=== PATIENT | male | born 1995 | race Caucasian/White ===

== ENCOUNTER 2021-09-18 08:14 | Emergency (ER) | payer BC ==
[~2021-09-18] VITALS: Ht 190.5 cm; Wt 108.8 kg
--- NOTE | 2021-09-18 08:50 | ED Chest Pain ---
General Chief Complaint: Cardiac/General Problems Stated Complaint: HEART FLUTTER Nursing Triage Note: PT AMB TO RM 6 WITH COMPLAINT OF FEELING LIKE HIS HEART IS FLUTTERING. STATES HAS BEEN GOING FOR THE LAST WEEK. Source: patient Exam Limitations: no limitations History of Present Illness Date Seen by Provider: Sep 18, 2021 Time Seen by Provider: 08:30 Initial Comments Patient to the ER by private conveyance with chief complaint that about 730, 1 hour prior to arrival he was laying on his bed and felt like he could not feel his heart beating so he put his Fitbit on and it was beating in the 80s. He went to push up off of the bed where he was laying on his belly and he said he felt some numbness in his left arm and some momentary pressure, tightness and 1 out of 10 pain along his sternum and as well as under his left breast and his left shoulder. The symptoms are reproducible by movement of his shoulder and chest. He has no history of heart disease. He says his mother has a history of hypertension but no other familial history. He does not take any medications routinely. He used to follow with a primary care provider in [place] and recently moved here to finish his 4-year degree at [employer]. He is not having any pain now stating the pain only lasted for a few seconds. He states he does have a history of anxiety which has gotten worse since moving to another town. He does not exercise as much as he used to. He says he does not drink coffee but he does drink energy drinks less than 1 a week. About a month ago he was drinking the more frequently. He says typically he just drinks them what is going on a long drive. No fevers chills cough or shortness of air. He is not having any pain presently. For the past couple weeks has been having palpitations in his chest on the left side usually lasting less than 10 seconds at a time. He does not use recreational stimulants, cannabis, tobacco or alcohol. No GERD or reflux. Allergies and Home Medications Allergies Coded Allergies: No Known Drug Allergies (Unverified , 09/18/21) Patient Home Medication List Home Medication List Reviewed: Yes Review of Systems Review of Systems Constitutional: No chills, No diaphoresis EENTM: No Blurred Vision, No Double Vision Respiratory: Denies Cough, Denies Shortness of Air Cardiovascular: See HPI, Chest Pain; Denies Lightheadedness Gastrointestinal: Denies Abdominal Pain, Denies Constipated, Denies Diarrhea, Denies Nausea Genitourinary: Denies Burning, Denies Discharge Musculoskeletal: No back pain, No joint pain All Other Systems Reviewed Negative Unless Noted: Yes Past Emlagsu-Zptcie-Xinfqi Hx Patient Social History Tobacco Use?: No Use of E-Cig and/or Vaping dev: No Substance use?: No Alcohol Use?: Yes Alcohol Frequency: Once in a while Pt feels they are or have been: No Physical Exam Vital Signs Vital Signs - First Documented 09/18/21 08:22 Temp 36.3 Pulse 90 Resp 13 B/P (MAP) 152/96 (114) Pulse Ox 99 O2 Delivery Room Air Capillary Refill : Less Than 3 Seconds Height, Weight, BMI Height: '" Weight: lbs. oz. kg; 29.00 BMI Method: General Appearance: No Apparent Distress, WD/WN HEENT: PERRL/EOMI, TMs Normal, Normal ENT Inspection, Moist Mucous Membranes Neck: Full Range of Motion, Normal Inspection Respiratory: Lungs Clear, Normal Breath Sounds, No Accessory Muscle Use, No Respiratory Distress, Other (Chest discomfort reproduced by movement of the chest wall and shoulder) Cardiovascular: Regular Rate, Rhythm, No Edema, Normal Peripheral Pulses Gastrointestinal: Normal Bowel Sounds, Non Tender, Soft Extremity: Normal Capillary Refill, Normal Inspection, No Pedal Edema Neurologic/Psychiatric: Alert, Oriented x3 Progress/Results/Core Measures Results/Orders Lab Results Laboratory Tests Test 09/18/21 09:25 09/18/21 09:35 Range/Units Urine Color YELLOW Urine Clarity CLEAR Urine pH 7.5 5-9 Urine Specific [place] 1.015 L 1.016-1.022 Urine Protein NEGATIVE NEGATIVE Urine Glucose (UA) NEGATIVE NEGATIVE Urine Ketones NEGATIVE NEGATIVE Urine Nitrite NEGATIVE NEGATIVE Urine Bilirubin NEGATIVE NEGATIVE Urine Urobilinogen 0.2 < = 1.0 MG/DL Urine Leukocyte Esterase NEGATIVE NEGATIVE Urine RBC (Auto) TRACE-I H NEGATIVE Urine RBC RARE /HPF Urine WBC NONE /HPF Urine Crystals NONE /LPF Urine Bacteria NEGATIVE /HPF Urine Casts NONE /LPF Urine Mucus NEGATIVE /LPF Urine Culture Indicated NO Urine Opiates Screen NEGATIVE NEGATIVE Urine Oxycodone Screen NEGATIVE NEGATIVE Urine Methadone Screen NEGATIVE NEGATIVE Urine Propoxyphene Screen NEGATIVE NEGATIVE Urine Barbiturates Screen NEGATIVE NEGATIVE Ur Tricyclic Antidepressants Screen NEGATIVE NEGATIVE Urine Phencyclidine Screen NEGATIVE NEGATIVE Urine Amphetamines Screen NEGATIVE NEGATIVE Urine Methamphetamines Screen NEGATIVE NEGATIVE Urine Benzodiazepines Screen NEGATIVE NEGATIVE Urine Cocaine Screen NEGATIVE NEGATIVE Urine Cannabinoids Screen NEGATIVE NEGATIVE White Blood Count 6.1 4.3-11.0 10^3/uL Red Blood Count 6.02 H 4.30-5.52 10^6/uL Hemoglobin 17.4 13.3-17.7 g/dL Hematocrit 52 40-54 % Mean Corpuscular Volume 86 80-99 fL Mean Corpuscular Hemoglobin 29 25-34 pg Mean Corpuscular Hemoglobin Concent 34 32-36 g/dL Red Cell Distribution Width 12.5 10.0-14.5 % Platelet Count 162 130-400 10^3/uL Mean Platelet Volume 9.4 9.0-12.2 fL Immature Granulocyte % (Auto) 1 % Neutrophils (%) (Auto) 71 42-75 % Lymphocytes (%) (Auto) 15 12-44 % Monocytes (%) (Auto) 12 0-12 % Eosinophils (%) (Auto) 1 0-10 % Basophils (%) (Auto) 1 0-10 % Neutrophils # (Auto) 4.3 1.8-7.8 10^3/uL Lymphocytes # (Auto) 0.9 L 1.0-4.0 10^3/uL Monocytes # (Auto) 0.7 0.0-1.0 10^3/uL Eosinophils # (Auto) 0.1 0.0-0.3 10^3/uL Basophils # (Auto) 0.0 0.0-0.1 10^3/uL Immature Granulocyte # (Auto) 0.0 0.0-0.1 10^3/uL Sodium Level 140 135-145 MMOL/L Potassium Level 4.0 3.6-5.0 MMOL/L Chloride Level 104 98-107 MMOL/L Carbon Dioxide Level 22 21-32 MMOL/L Anion Gap 14 5-14 MMOL/L Blood Urea Nitrogen 9 7-18 MG/DL Creatinine 1.15 0.60-1.30 MG/DL Estimat Glomerular Filtration Rate 91 BUN/Creatinine Ratio 8 Glucose Level 96 70-105 MG/DL Calcium Level 10.1 8.5-10.1 MG/DL Corrected Calcium 8.5-10.1 MG/DL Total Bilirubin 0.9 0.1-1.0 MG/DL Aspartate Amino Transf (AST/SGOT) 32 5-34 U/L Alanine Aminotransferase (ALT/SGPT) 38 0-55 U/L Alkaline Phosphatase 56 40-136 U/L Troponin I < 0.028 <0.028 NG/ML Total Protein 8.0 6.4-8.2 GM/DL Albumin 5.0 H 3.2-4.5 GM/DL Thyroid Stimulating Hormone (TSH) 0.97 0.35-4.94 UIU/ML My Orders Orders - LISA AREVALO Ekg Tracing (09/18/21 08:28) Continuous Ekg Monitoring (09/18/21 08:28) Cbc With Automated Diff (09/18/21 08:45) Comprehensive Metabolic Panel (09/18/21 08:45) Troponin I [place] (09/18/21 08:45) Thyroid Stimulating Hormone (09/18/21 08:45) Drug Screen Stat (Urine) (09/18/21 08:45) Ua Culture If Indicated (09/18/21 08:45) Chest 1 View, Ap/Pa Only (09/18/21 08:50) Vital Signs/I&O 09/18/21 08:22 Temp 36.3 Pulse 90 Resp 13 B/P (MAP) 152/96 (114) Pulse Ox 99 O2 Delivery Room Air Blood Pressure Mean: 114 Progress Progress Note : Time: 08:54 Progress Note Suspect his discomfort in his chest after pushing up off the bed may be related to musculoskeletal. We will check a TSH, troponin and some basic labs for electrolytes and anemia. We will get a chest x-ray to evaluate the size of the heart and make sure there is no underlying pneumonia or mass. He has a normal rhythm on telemetry and will obtain an EKG. We will observe him as long as it takes to get results here in the ER and if we do not find any dysrhythmias on the monitor will send him a referral to cardiology for any more work-up. We have also encouraged him to follow-up with a primary care provider. We have also discussed his anxiety and techniques to manage it as well as looking for counselors through [facility]. Initial ECG Impression Date: Sep 18, 2021 Initial ECG Impression Time: 09:14 Initial ECG Rate: 86 Initial ECG Rhythm: Normal Sinus Initial ECG Intervals: Normal Initial ECG Impression: Normal Initial ECG Comparisson: No Previous ECG Available Comment Normal sinus rhythm without any clinically relevant ST changes. No dysrhythmias noted. Diagnostic Imaging Diagonstic Imaging: Xray Plain Films/CT/US/NM/MRI: chest Comments [facility] [place], [place] NAME: CLINT MAHER [facility] REC#: [id number] PT STATUS: REG ER : 1995 PHYSICIAN: LISA AREVALO MD ADMIT DATE: 09/18/21/ER Signed Date of Exam:09/18/21 CHEST 1 VIEW, AP/PA ONLY EXAMINATION: Chest, 1 view. HISTORY: Chest pain. COMPARISON: None available. FINDINGS: The lung volumes are normal. No focal consolidation is seen. No large pleural effusion or pneumothorax is seen. The cardiomediastinal silhouette is normal in size and contour. No acute osseous abnormality is seen. IMPRESSION: No acute pleuroparenchymal process. Dictated by: Dictated on workstation # [id number] Dict: 09/18/21909 Trans: 09/18/21911 [id number] Interpreted by: MEGA RAMOS DO Electronically signed by: MEGA RAMOS DO 09/18/21911 Reviewed: Reviewed by Me Departure Impression Primary Impression: Palpitations Additional Impression: Chest wall pain Disposition: 01 HOME, SELF-CARE Condition: Stable Departure-Patient Inst. Decision time for Depature: 11:25 Referrals: JULIEN MARIE MDP [facility] NO,LOCAL PHYSICIAN (PCP) Primary Care Physician Patient Instructions: Palpitations ED Add. Discharge Instructions: We could not find any emergent reason for your palpitations today. 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 Return to the ER if you have persistent, severe pain in your chest or other worrisome symptoms such as shortness of air on exertion. All discharge instructions reviewed with patient and/or family. Voiced understanding. Work/School Note: Work Release Form Date Seen in the Emergency Department: Sep 18, 2021 Return to Work: Sep 18, 2021 Restrictions: No Restrictions Copy Copies To 1: JULIEN MARIE MD FACP FAC [facility] LISA AREVALO Sep 18, 2021 08:50
--- NOTE | 2021-09-18 09:10 | Diagnostic Imaging Report ---
EXAMINATION: Chest, 1 view. HISTORY: Chest pain. COMPARISON: None available. FINDINGS: The lung volumes are normal. No focal consolidation is seen. No large pleural effusion or pneumothorax is seen. The cardiomediastinal silhouette is normal in size and contour. No acute osseous abnormality is seen. IMPRESSION: No acute pleuroparenchymal process. Dictated by: Dictated on workstation # [id number]
[2021-09-18 09:31] LABS: BILIRUBIN,URINE NEGATIVE (NEGATIVE); CLARITY,URINE CLEAR; COLOR,URINE YELLOW; GLUCOSE, URINE (UA) NEGATIVE (NEGATIVE); KETONES,URINE NEGATIVE (NEGATIVE); LEUKOCYTE ESTERASE ,URINE NEGATIVE (NEGATIVE); NITRITE,URINE NEGATIVE (NEGATIVE); PH,URINE 7.5 (5-9); PROTEIN,URINE NEGATIVE (NEGATIVE)
[2021-09-18 09:45] LABS: AMPHETAMINE SCREEN, URINE NEGATIVE (NEGATIVE); BARBITURATE SCREEN URINE NEGATIVE (NEGATIVE); BENZODIAZEPINES SCREEN URINE NEGATIVE (NEGATIVE); CANNABINOID SCREEN, URINE NEGATIVE (NEGATIVE); COCAINE SCREEN URINE NEGATIVE (NEGATIVE); METHADONE STAT NEGATIVE (NEGATIVE); METHAMPHETAMINE SCREEN URINE S NEGATIVE (NEGATIVE); OPIATE SCREEN URINE NEGATIVE (NEGATIVE); OXYCODONE STAT NEGATIVE (NEGATIVE); PROPOXYPHENE STAT NEGATIVE (NEGATIVE); TRICYCLIC ANTIDEPRESSANTS SCRE NEGATIVE (NEGATIVE)
[2021-09-18 09:47] LABS: BASOPHILS % (AUTO) 1 % (0-10); EOSINOPHILS # (AUTO) 0.1 10^3/uL (0.0-0.3); EOSINOPHILS % (AUTO) 1 % (0-10); HEMATOCRIT 52 % (40-54); HEMOGLOBIN 17.4 g/dL (13.3-17.7); LYMPHOCYTES # (AUTO) 0.9 10^3/uL (1.0-4.0); LYMPHOCYTES % (AUTO) 15 % (12-44); MEAN CORPUSCULAR HEMOGLOBIN 29 pg (25-34); MEAN CORPUSCULAR HGB CONC 34 g/dL (32-36); MEAN CORPUSCULAR VOLUME 86 fL (80-99); MEAN PLATELET VOLUME 9.4 fL (9.0-12.2); MONOCYTES # (AUTO) 0.7 10^3/uL (0.0-1.0); MONOCYTES % (AUTO) 12 % (0-12); NEUTROPHILS # (AUTO) 4.3 10^3/uL (1.8-7.8); NEUTROPHILS % (AUTO) 71 % (42-75); PLATELET COUNT 162 10^3/uL (130-400); WHITE BLOOD COUNT 6.1 10^3/uL (4.3-11.0)
[2021-09-18 09:47] LABS: BACTERIA,URINE NEGATIVE /HPF; RBC,URINE RARE /HPF
[2021-09-18 10:04] LABS: CHLORIDE 104 MMOL/L (98-107); SODIUM 140 MMOL/L (135-145)
[2021-09-18 10:05] LABS: CALCIUM 10.1 MG/DL (8.5-10.1)
[2021-09-18 10:06] LABS: GLUCOSE 96 MG/DL (70-105)
[2021-09-18 10:07] LABS: CARBON DIOXIDE 22 MMOL/L (21-32)
[2021-09-18 10:08] LABS: BILIRUBIN,TOTAL 0.9 MG/DL (0.1-1.0)
[2021-09-18 10:09] LABS: ALKALINE PHOSPHATASE 56 U/L (40-136)
[2021-09-18 10:10] LABS: CREATININE SERUM 1.15 MG/DL (0.60-1.30); GFR ESTIMATED 91
[2021-09-18 10:11] LABS: BUN/CREATININE RATIO 8
[2021-09-18 10:13] LABS: ALANINE AMINOTRANSFERASE 38 U/L (0-55)
[2021-09-18 11:50] VITALS: BP 135/86
== END 2021-09-18 11:50 | disposition home or self-care (01) ==
LOC: ER 08:18
DX: R00.2 Palpitations (principal)
CPT/HCPCS: 36415; 71045; 80053; 80306; 81000; 84443; 84484; 85025; 93005

== ENCOUNTER 2022-09-05 01:08 | Emergency (ER) | payer BC ==
[~2022-09-05] VITALS: Ht 190 cm; Wt 117.0 kg
--- NOTE | 2022-09-05 01:44 | ED Chest Pain ---
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 HR 87 AND REGULAR NSR ON MONITOR DURING TRIAGE. PT WENT TO [facility] AND WAS GIVEN RX NAPROXEN FOR SCIATICA AND IS CONCERNED THIS COULD BE CAUSED FROM STARTING NAPROXEN. Source: patient, old records Exam Limitations: no limitations History of Present Illness Date Seen by Provider: Sep 05, 2022 Time Seen by Provider: 01:15 Initial Comments This 27-year-old young man presents to the emergency room with complaints of sensation of rapid heart rate and a warm discomfort in his left chest and into his left arm. He notes his heart rate at rest was in the 80s. While up pacing and talking to his mom on the phone it escalated to 136. The discomfort in his chest improved with deep breathing and taking a shower but then worsened again. Pain started when he was lying in bed around midnight. Patient reports starting naproxen yesterday morning as prescribed by the [facility] for reasons of right leg sciatica. Patient was seen in this emergency room about a year ago for similar symptoms. He reports previously having problems with heartburn but feels like this is something different. 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 He denies feeling anxious or having any unusual psychosocial stressors. He denies any drug or alcohol abuse. Allergies and Home Medications Allergies Coded Allergies: No Known Drug Allergies (Unverified , 09/18/21) Patient Home Medication List Home Medication List Reviewed: Yes Review of Systems Review of Systems Constitutional: no symptoms reported EENTM: No Symptoms Reported Respiratory: No Symptoms Reported Cardiovascular: See HPI Gastrointestinal: No Symptoms Reported Genitourinary: No Symptoms Reported Musculoskeletal: see HPI Skin: no symptoms reported Psychiatric/Neurological: See HPI Endocrine: No Symptoms Reported Hematologic/Lymphatic: No Symptoms Reported Past Kfqwmbw-Anlvsh-Nlyftp Hx Patient Social History Tobacco Use?: No Substance use?: No Alcohol Use?: No Immunizations Up To Date Influenza Vaccine Up-to-Date: No; Not Current COVID19 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 oz. 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 Norm as Tested Skin: Normal Color, Warm/Dry Progress/Results/Core Measures Results/Orders Lab Results Laboratory Tests Test 09/05/22 02:05 Range/Units White Blood Count 7.1 4.3-11.0 10^3/uL Red Blood Count 5.14 4.30-5.52 10^6/uL Hemoglobin 15.1 13.3-17.7 g/dL Hematocrit 44 40-54 % Mean Corpuscular Volume 86 80-99 fL Mean Corpuscular Hemoglobin 29 25-34 pg Mean Corpuscular Hemoglobin Concent 34 32-36 g/dL Red Cell Distribution Width 11.9 10.0-14.5 % Platelet Count 196 130-400 10^3/uL Mean Platelet Volume 9.8 9.0-12.2 fL Immature Granulocyte % (Auto) 0 % Neutrophils (%) (Auto) 63 42-75 % Lymphocytes (%) (Auto) 25 12-44 % Monocytes (%) (Auto) 8 0-12 % Eosinophils (%) (Auto) 2 0-10 % Basophils (%) (Auto) 1 0-10 % Neutrophils # (Auto) 4.5 1.8-7.8 10^3/uL Lymphocytes # (Auto) 1.8 1.0-4.0 10^3/uL Monocytes # (Auto) 0.6 0.0-1.0 10^3/uL Eosinophils # (Auto) 0.1 0.0-0.3 10^3/uL Basophils # (Auto) 0.0 0.0-0.1 10^3/uL Immature Granulocyte # (Auto) 0.0 0.0-0.1 10^3/uL Sodium Level 140 135-145 MMOL/L Potassium Level 4.0 3.6-5.0 MMOL/L Chloride Level 108 H 98-107 MMOL/L Carbon Dioxide Level 21 21-32 MMOL/L Anion Gap 11 5-14 MMOL/L Blood Urea Nitrogen 14 7-18 MG/DL Creatinine 1.03 0.60-1.30 MG/DL Estimat Glomerular Filtration Rate 103 BUN/Creatinine Ratio 14 Glucose Level 114 H 70-105 MG/DL Calcium Level 9.3 8.5-10.1 MG/DL Magnesium Level 2.1 1.6-2.4 MG/DL Troponin I < 0.028 <0.028 NG/ML My Orders Orders - ESTEFANI STANTON MD Monitor-Rhythm Ecg Trace Only (09/05/22 01:17) Ed Iv/Invasive Line Start (09/05/22 01:42) Ekg Tracing (09/05/22 01:42) Basic Metabolic Panel (09/05/22 01:42) Cbc With Automated Diff (09/05/22 01:42) Magnesium (09/05/22 01:42) Troponin I [place] (09/05/22 01:42) Chest 1 View, Ap/Pa Only (09/05/22 01:42) Vital Signs/I&O 09/05/22 09/05/22 09/05/22 01:18 01:18 03:02 Temp 36.2 36.2 Pulse 87 79 Resp 16 16 B/P (MAP) 133/97 (109) 123/80 Pulse Ox 97 96 O2 Delivery Room Air Room Air Room Air Blood Pressure Mean: 109 Progress Progress Note : Progress Note Work-up was reviewed in its entirety including CBC, BMP, magnesium, EKG, and chest x-ray. No acute abnormalities were identified. Patient was discharged with reassurance. Initial ECG Impression Date: Sep 05, 2022 Initial ECG Impression Time: 01:58 Initial ECG Rate: 72 Initial ECG Rhythm: Normal Sinus Initial ECG Intervals: Normal Initial ECG Impression: Normal Comment Normal sinus rhythm with no ischemic ST elevation or depression. Juvenile pattern with early repolarization noted without change from prior. No abnormal intervals or axis deviation. Diagnostic Imaging Diagonstic Imaging: Xray Plain Films/CT/US/NM/MRI: chest Comments Chest x-ray viewed by me and compared with prior. My interpretation there are no adverse changes or acute abnormalities. Radiologist report not yet available. Departure Impression Primary Impression: Atypical chest pain Disposition: HOME, SELF-CARE Condition: Improved Departure-Patient Inst. Decision time for Depature: 02:58 Referrals: [facility] (PCP/Family) Primary Care Physician Patient Instructions: Chest Pain, Adult ED Add. Discharge Instructions: Follow-up with the [facility] to discuss options for further evaluation. You may take Tylenol and/or your prescribed naproxen for pain. Return to the ER if you have worsening symptoms or escalating pain despite taking Tylenol and/or naproxen. All discharge instructions reviewed with patient and/or family. Voiced understanding. Copy Copies To 1: TESHA BURROWS MD, JOSHUA T MD Sep 05, 2022 01:44
[2022-09-05 02:27] LABS: BASOPHILS % (AUTO) 1 % (0-10); EOSINOPHILS # (AUTO) 0.1 10^3/uL (0.0-0.3); EOSINOPHILS % (AUTO) 2 % (0-10); HEMATOCRIT 44 % (40-54); HEMOGLOBIN 15.1 g/dL (13.3-17.7); LYMPHOCYTES # (AUTO) 1.8 10^3/uL (1.0-4.0); LYMPHOCYTES % (AUTO) 25 % (12-44); MEAN CORPUSCULAR HEMOGLOBIN 29 pg (25-34); MEAN CORPUSCULAR HGB CONC 34 g/dL (32-36); MEAN CORPUSCULAR VOLUME 86 fL (80-99); MEAN PLATELET VOLUME 9.8 fL (9.0-12.2); MONOCYTES # (AUTO) 0.6 10^3/uL (0.0-1.0); MONOCYTES % (AUTO) 8 % (0-12); NEUTROPHILS # (AUTO) 4.5 10^3/uL (1.8-7.8); NEUTROPHILS % (AUTO) 63 % (42-75); PLATELET COUNT 196 10^3/uL (130-400); WHITE BLOOD COUNT 7.1 10^3/uL (4.3-11.0)
[2022-09-05 02:31] LABS: CHLORIDE 108 MMOL/L (98-107); SODIUM 140 MMOL/L (135-145)
[2022-09-05 02:32] LABS: CALCIUM 9.3 MG/DL (8.5-10.1)
[2022-09-05 02:33] LABS: GLUCOSE 114 MG/DL (70-105)
[2022-09-05 02:34] LABS: CARBON DIOXIDE 21 MMOL/L (21-32)
[2022-09-05 02:37] LABS: CREATININE SERUM 1.03 MG/DL (0.60-1.30); GFR ESTIMATED 103
[2022-09-05 02:38] LABS: BUN/CREATININE RATIO 14
[2022-09-05 02:39] LABS: MAGNESIUM 2.1 MG/DL (1.6-2.4)
[2022-09-05 03:02] VITALS: BP 123/80
--- NOTE | 2022-09-05 06:11 | Diagnostic Imaging Report ---
EXAMINATION: Chest 1 view HISTORY: Chest pain COMPARISON: 09/18/2021 FINDINGS: Heart size and pulmonary vasculature are normal. The lungs are clear without consolidation, pleural effusion, or pneumothorax. The osseous structures are intact. IMPRESSION: 1. No acute radiographic abnormality in the chest. Dictated by: Dictated on workstation # [id number]
== END 2022-09-05 03:10 | disposition home or self-care (01) ==
LOC: EDUNIT# 01:08 → ER 01:11
DX: R07.89 Other chest pain (principal)
CPT/HCPCS: 36415; 71045; 80048; 83735; 84484; 85025; 93005; 93041